=== PATIENT | male | born 1975 | race Caucasian/White ===

== ENCOUNTER 2018-01-24 09:35 | Emergency (ER) | payer SELFPAY ==
[~2018-01-24] VITALS: Ht 182.9 cm; Wt 113.4 kg
[~2018-01-24 09:35] MED LIST: ACHD5005 PO; CYCL10TA9 PO
--- NOTE | 2018-01-24 10:46 | ED Lower Extremity ---
General Chief Complaint: Lower Extremity Stated Complaint: SWOLLEN ANKLES Nursing Triage Note: ARRIVED VIA AMB TO ROOM 06. COMPLAINS OF BILAT LOWER LEG EDEMA THAT HAS BEEN GOING ON FOR A WHILE. STATES HE WENT TO [facility] 5 MONTHS AGO AND WAS TOLD HE HAD CELLULITIS. Nursing Sepsis Screen: No Definite Risk Source: patient Exam Limitations: no limitations History of Present Illness Date Seen by Provider: Jan 24, 2018 Time Seen by Provider: 10:42 Initial Comments To ER with c/o bilateral leg edema. Right leg swelling x6 months and was seen at [facility] at onset of this, told he had cellulitis. However, swelling persists and no fevers or redness. About 3 weeks ago, the left leg began swelling. No pain. No abdominal pain, no dyspnea. He does use compression stockings at home sometimes. Also, his dad has lasix that he occasionally takes but does not notice that it helps any. Onset: this evening Severity: moderate Allergies and Home Medications Allergies Coded Allergies: No Known Drug Allergies (Unverified , 11/26/12) Home Medications Hydrochlorothiazide 25 Mg Tablet, 25 MG PO DAILY Prescribed by: JE PABLO on 01/24/18 1151 Patient Home Medication List Home Medication List Reviewed: Yes Constitutional: see HPI EENTM: see HPI Respiratory: no symptoms reported Cardiovascular: no symptoms reported Genitourinary: no symptoms reported Musculoskeletal: no symptoms reported Skin: see HPI Psychiatric/Neurological: No Symptoms Reported Past Aimosbo-Bkpfmc-Jrovas Hx Patient Social History Alcohol Use: Denies Use Recreational Drug Use: No Smoking Status: Current Everyday Smoker Recent Foreign Travel: No Contact w/Someone Who Travel: No Recent Infectious Disease Expo: No Past Medical History Surgeries: Yes (VERICOSE VEIN IN TESTICLE) Respiratory: No Neurological: No Gastrointestinal: Yes (HEP C) Hepatitis Musculoskeletal: No Endocrine: No HEENT: No Cancer: No Psychosocial: No Integumentary: No Physical Exam Vital Signs Vital Signs - First Documented 01/24/18 01/24/18 10:02 11:58 Temp 98.0 Pulse 86 Resp 16 B/P (MAP) 138/83 (101) Pulse Ox 97 O2 Delivery Room Air Capillary Refill : Less Than 3 Seconds General Appearance: WD/WN, no apparent distress HEENT: PERRL/EOMI, normal ENT inspection Neck: non-tender, full range of motion Respiratory: no respiratory distress, no accessory muscle use Gastrointestinal: non tender, soft Hips: bilateral hip non-tender, bilateral hip normal inspection, bilateral hip normal range of motion Legs: bilateral leg non-tender, bilateral leg normal inspection, bilateral leg normal range of motion Knees: bilateral knee non-tender, bilateral knee normal inspection, bilateral knee normal range of motion Ankles: bilateral ankle swelling (bilateral but right > left. 2+ pitting edema. brownish discoloration to right lower leg. this swelling is confined primarily to the ankles and distal 1/3 of lower etremity. ) Progress/Results/Core Measures Lab Results Laboratory Tests Test 01/24/18 10:45 Range/Units White Blood Count 10.2 4.3-11.0 10^3/uL Red Blood Count 4.55 4.35-5.85 10^6/uL Hemoglobin 14.1 13.3-17.7 G/DL Hematocrit 41 40-54 % Mean Corpuscular Volume 91 80-99 FL Mean Corpuscular Hemoglobin 31 25-34 PG Mean Corpuscular Hemoglobin Concent 34 32-36 G/DL Red Cell Distribution Width 12.4 10.0-14.5 % Platelet Count 235 130-400 10^3/uL Mean Platelet Volume 9.2 7.4-10.4 FL Neutrophils (%) (Auto) 58 42-75 % Lymphocytes (%) (Auto) 30 12-44 % Monocytes (%) (Auto) 9 0-12 % Eosinophils (%) (Auto) 3 0-10 % Basophils (%) (Auto) 0 0-10 % Neutrophils # (Auto) 5.9 1.8-7.8 X 10^3 Lymphocytes # (Auto) 3.0 1.0-4.0 X 10^3 Monocytes # (Auto) 1.0 0.0-1.0 X 10^3 Eosinophils # (Auto) 0.3 0.0-0.3 10^3/uL Basophils # (Auto) 0.0 0.0-0.1 10^3/uL Sodium Level 141 135-145 MMOL/L Potassium Level 3.7 3.6-5.0 MMOL/L Chloride Level 107 98-107 MMOL/L Carbon Dioxide Level 23 21-32 MMOL/L Anion Gap 11 5-14 MMOL/L Blood Urea Nitrogen 13 7-18 MG/DL Creatinine 0.93 0.60-1.30 MG/DL Estimat Glomerular Filtration Rate > 60 BUN/Creatinine Ratio 14 Glucose Level 122 H 70-105 MG/DL Calcium Level 9.2 8.5-10.1 MG/DL B-Type Natriuretic Peptide < 10.0 <100.0 PG/ML My Orders Orders - JE PABLO APRN Cbc With Automated Diff (01/24/18 10:37) BNP (01/24/18 10:37) Basic Metabolic Panel (01/24/18 10:37) Saline Lock/Iv-Start (01/24/18 10:37) Us Venous Lower Ext [place] (01/24/18 10:46) Vital Signs/I&O 01/24/18 01/24/18 10:02 11:58 Temp 98.0 Pulse 86 80 Resp 16 16 B/P (MAP) 138/83 (101) 141/89 Pulse Ox 97 98 O2 Delivery Room Air Blood Pressure Mean: 101 Departure Impression Primary Impression: Pedal edema Disposition: 01 HOME, SELF-CARE Condition: Stable/Unchanged Departure-Patient Inst. Decision time for Depature: 11:49 Referrals: [facility] [place] (PCP/Family) Primary Care Physician Patient Instructions: Dependent Edema (DC) Add. Discharge Instructions: Continue to wear THEODORA hose and elevate the lower extremities as much as possible and take her diuretic as directed and follow up with your primary care within 1 week for recheck. All discharge instructions reviewed with patient and/or family. Voiced understanding. Scripts Hydrochlorothiazide (Hydrochlorothiazide) 25 Mg Tablet 25 MG PO DAILY for 15 Days, #15 TAB Prov: JE PABLO APRN 01/24/18 JE PABLO APRN Jan 24, 2018 10:46
[2018-01-24 10:54] LABS: BASOPHILS % (AUTO) 0 % (0-10); EOSINOPHILS # (AUTO) 0.3 10^3/uL (0.0-0.3); EOSINOPHILS % (AUTO) 3 % (0-10); HEMATOCRIT 41 % (40-54); HEMOGLOBIN 14.1 G/DL (13.3-17.7); LYMPHOCYTES % (AUTO) 30 % (12-44); MEAN CORPUSCULAR HEMOGLOBIN 31 PG (25-34); MEAN CORPUSCULAR HGB CONC 34 G/DL (32-36); MEAN CORPUSCULAR VOLUME 91 FL (80-99); MEAN PLATELET VOLUME 9.2 FL (7.4-10.4); MONOCYTES % (AUTO) 9 % (0-12); NEUTROPHILS # (AUTO) 5.9 X 10^3 (1.8-7.8); NEUTROPHILS % (AUTO) 58 % (42-75); PLATELET COUNT 235 10^3/uL (130-400); RED BLOOD COUNT 4.55 10^6/uL (4.35-5.85); RED CELL DISTRIBUTION WIDTH 12.4 % (10.0-14.5); WHITE BLOOD COUNT 10.2 10^3/uL (4.3-11.0)
[2018-01-24 11:17] LABS: BUN/CREATININE RATIO 14; CALCIUM 9.2 MG/DL (8.5-10.1); CARBON DIOXIDE 23 MMOL/L (21-32); CHLORIDE 107 MMOL/L (98-107); CREATININE SERUM 0.93 MG/DL (0.60-1.30); GFR ESTIMATED > 60; GLUCOSE 122 MG/DL (70-105); POTASSIUM 3.7 MMOL/L (3.6-5.0); SODIUM 141 MMOL/L (135-145)
[2018-01-24] MEDS ORDERED: HYDR25TA4 PO (11:51)
[2018-01-24 11:58] VITALS: BP 141/89
--- NOTE | 2018-01-24 11:58 | Diagnostic Imaging Report ---
INDICATION: Bilateral ankle swelling. FINDINGS: The femoropopliteal deep venous system bilaterally was widely patent and showed normal compressibility, normal flow and normal Doppler waveforms. No superficial thrombi are identified. No mass or fluid collection documented. IMPRESSION: Normal negative bilateral lower extremity venous Doppler and ultrasound exam. Dictated by: Dictated on workstation # [id number]
--- OUTSIDE RECORDS SUMMARY | 2018-01-24 13:36 | XMS REPORT ---
Author Author ZOILA PUGH Organization [employer] Address Unknown Phone Unavailable Care Team Providers Care Pile Trimmer Name Role Phone ZOILA PUGH CP Unavailable Allergies, Adverse Reactions, Alerts Substance Reaction Event Type N.K.D.A. Info Not Available Non Drug Allergy Problems Problem Type Condition Code Onset Dates Condition Status Assessment Cellulitis of right lower extremity L03.115 Active Medications Medication Code System Code Instructions Start Date End Date Status Dosage Clindamycin HCl [facility] [address]-04 300 MG Orally every 8 hrs Aug 14, 2016 Aug 21, 2016 1 capsule Tramadol HCl [facility] [address]-50 50 MG Orally every 6 hrs 1 tablet as needed Procedures Procedure Coding System Code Date Office Visit, Est Pt., Level 3 CPT-4 67994 Aug 14, 2016 Vital Signs Date/Time: Aug 14, 2016 Cardiac Monitoring Heart Rate 78 bpm Weight 228.0 lbs Height 72 in BMI 30.92 Index Blood Pressure Diastolic 72 mmHg Blood Pressure Systolic 114 mmHg Results No Known Results Summary Purpose [employer] Submission
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
== END 2018-01-24 11:58 | disposition home or self-care (01) ==
LOC: EDUNIT# 09:35 → ER 09:37
DX: R60.0 Localized edema (principal); B19.20 Unspecified viral hepatitis C without hepatic coma; F17.200 Nicotine dependence, unspecified, uncomplicated
CPT/HCPCS: 36415; 80048; 83880; 85025; 93970

== ENCOUNTER 2019-06-25 17:59 | Emergency (ER) | payer OTHER ==
[~2019-06-25] VITALS: Ht 182.8 cm; Wt 113.6 kg
[~2019-06-25 17:59] MED LIST changes: +HYDR25TA4 PO
--- NOTE | 2019-06-25 19:38 | Diagnostic Imaging Report ---
INDICATION: Right elbow pain. FINDINGS: Alignment of the elbow appears appropriate. There is a normal anterior humeral radiocapitellar line. There is no elevation of fat pad to suggest the presence of a joint effusion. No fractures evident. Soft tissues unremarkable without foreign body. IMPRESSION: Negative radiographs of the right elbow. Dictated by: Dictated on workstation # [id number]
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
[2019-06-25 20:27] VITALS: BP 109/78
== END 2019-06-25 20:27 | disposition home or self-care (01) ==
LOC: EDUNIT# 17:59 → ER 18:01
DX: S50.311A Abrasion of right elbow, initial encounter (principal); S80.11XA Contusion of right lower leg, initial encounter; B19.20 Unspecified viral hepatitis C without hepatic coma; F17.210 Nicotine dependence, cigarettes, uncomplicated; Z77.22 Contact with and (suspected) exposure to environmental tobacco smoke (acute) (chronic); W25.XXXA Contact with sharp glass, initial encounter
CPT/HCPCS: 73080

== ENCOUNTER 2022-03-11 00:38 | Emergency (ER) | payer SELFPAY ==
[~2022-03-11] VITALS: Ht 155 cm; Wt 127.0 kg
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
[2022-03-11 00:59] VITALS: BP 137/80
[2022-03-11] MEDS ORDERED: TETANUS,DIPTH,PERTUSS P/F (BOOSTRIX) 0.5 ML VIAL IM ONE (01:00)
[2022-03-11 01:27] LABS: BASOPHILS # (AUTO) 0.1 10^3/uL (0.0-0.1); BASOPHILS % (AUTO) 1 % (0-10); EOSINOPHILS # (AUTO) 0.3 10^3/uL (0.0-0.3); EOSINOPHILS % (AUTO) 2 % (0-10); HEMATOCRIT 44 % (40-54); HEMOGLOBIN 14.7 g/dL (13.3-17.7); LYMPHOCYTES # (AUTO) 3.3 10^3/uL (1.0-4.0); LYMPHOCYTES % (AUTO) 29 % (12-44); MEAN CORPUSCULAR HEMOGLOBIN 29 pg (25-34); MEAN CORPUSCULAR HGB CONC 33 g/dL (32-36); MEAN CORPUSCULAR VOLUME 89 fL (80-99); MEAN PLATELET VOLUME 9.5 fL (9.0-12.2); MONOCYTES # (AUTO) 0.9 10^3/uL (0.0-1.0); MONOCYTES % (AUTO) 8 % (0-12); NEUTROPHILS # (AUTO) 7.1 10^3/uL (1.8-7.8); NEUTROPHILS % (AUTO) 61 % (42-75); PLATELET COUNT 274 10^3/uL (130-400); WHITE BLOOD COUNT 11.7 10^3/uL (4.3-11.0)
[2022-03-11 01:41] LABS: ALBUMIN 3.8 GM/DL (3.2-4.5)
[2022-03-11 01:42] LABS: CHLORIDE 105 MMOL/L (98-107); POTASSIUM 3.9 MMOL/L (3.6-5.0); SODIUM 140 MMOL/L (135-145)
[2022-03-11 01:43] LABS: CALCIUM 9.4 MG/DL (8.5-10.1); INR 0.8 (0.8-1.4); PROTHROMBIN TIME PATIENT 11.8 SEC (12.2-14.7)
[2022-03-11 01:44] LABS: GLUCOSE 108 MG/DL (70-105); TOTAL PROTEIN 7.1 GM/DL (6.4-8.2)
[2022-03-11 01:45] LABS: CARBON DIOXIDE 21 MMOL/L (21-32)
[2022-03-11 01:46] LABS: BILIRUBIN,TOTAL 0.2 MG/DL (0.1-1.0)
[2022-03-11 01:47] LABS: ALKALINE PHOSPHATASE 83 U/L (40-136)
[2022-03-11 01:48] LABS: CREATININE SERUM 0.88 MG/DL (0.60-1.30); GFR ESTIMATED 106
[2022-03-11 01:49] LABS: BUN/CREATININE RATIO 9
[2022-03-11] MEDS ORDERED: RX-MUPIROCIN (BACTROBAN) 2% OINT 22 GM TUBE TOP STA (01:50)
[2022-03-11 01:51] LABS: ALANINE AMINOTRANSFERASE 21 U/L (0-55)
[2022-03-11] MEDS ORDERED: CEPH500T PO (02:17)
[2022-03-11] MEDS ORDERED: RX-CEPHALEXIN (KEFLEX) 250 MG CAP PPK#4 PO STA (02:17)
[2022-03-11] MEDS ORDERED: RX-CEPHALEXIN (KEFLEX) 250 MG CAP PPK#4 PO ONE (02:20)
--- NOTE | 2022-03-11 07:01 | Diagnostic Imaging Report ---
INDICATION: Left lower leg pain EXAMINATION: Tibia and fibula from 03/11/2022 FINDINGS: 4 views of the tibia and fibula. There is diffuse edema noted within the soft tissues. No fractures or dislocations appreciated. Joint spaces maintained. IMPRESSION: 1. Diffuse edema within the soft tissues. No acute osseous abnormality. Dictated by: Dictated on workstation # [id number]
== END 2022-03-11 02:40 | disposition home or self-care (01) ==
LOC: EDUNIT# 00:38 → ER 00:42
DX: S80.12XA Contusion of left lower leg, initial encounter (principal); I87.2 Venous insufficiency (chronic) (peripheral); I83.018 Varicose veins of right lower extremity with ulcer other part of lower leg; I83.028 Varicose veins of left lower extremity with ulcer other part of lower leg; R60.0 Localized edema; E66.01 Morbid (severe) obesity due to excess calories; F17.210 Nicotine dependence, cigarettes, uncomplicated; Z68.33 Body mass index [BMI] 33.0-33.9, adult; Z23 Encounter for immunization; Z98.890 Other specified postprocedural states; Z20.822 Contact with and (suspected) exposure to COVID-19; W20.8XXA Other cause of strike by thrown, projected or falling object, initial encounter
CPT/HCPCS: 73590; 80053; 83880; 85025; 85610; 85730; 87636; 99283; G0480; 36415; 80320; 90715

== ENCOUNTER 2022-05-17 01:03 | Emergency (ER) | payer SELFPAY ==
[~2022-05-17 01:03] MED LIST changes: +CEPH500T PO
[2022-05-17 01:22] VITALS: BP 175/92
[2022-05-17] MEDS ORDERED: morphine INJ 10 MG/ML 1ML (SYR OR VIAL) IVP STA (01:27)
[2022-05-17 01:32] LABS: BASOPHILS # (AUTO) 0.1 10^3/uL (0.0-0.1); BASOPHILS % (AUTO) 1 % (0-10); EOSINOPHILS # (AUTO) 0.3 10^3/uL (0.0-0.3); EOSINOPHILS % (AUTO) 2 % (0-10); HEMATOCRIT 44 % (40-54); HEMOGLOBIN 14.5 g/dL (13.3-17.7); LYMPHOCYTES # (AUTO) 3.5 10^3/uL (1.0-4.0); LYMPHOCYTES % (AUTO) 28 % (12-44); MEAN CORPUSCULAR HEMOGLOBIN 30 pg (25-34); MEAN CORPUSCULAR HGB CONC 33 g/dL (32-36); MEAN CORPUSCULAR VOLUME 89 fL (80-99); MEAN PLATELET VOLUME 9.4 fL (9.0-12.2); MONOCYTES % (AUTO) 8 % (0-12); NEUTROPHILS # (AUTO) 7.7 10^3/uL (1.8-7.8); NEUTROPHILS % (AUTO) 61 % (42-75); PLATELET COUNT 282 10^3/uL (130-400); WHITE BLOOD COUNT 12.7 10^3/uL (4.3-11.0)
[2022-05-17 01:35] LABS: ALBUMIN 3.9 GM/DL (3.2-4.5)
[2022-05-17 01:36] LABS: CALCIUM 9.1 MG/DL (8.5-10.1)
[2022-05-17 01:40] LABS: BILIRUBIN,TOTAL 0.3 MG/DL (0.1-1.0)
[2022-05-17 01:41] LABS: CREATININE SERUM 1.11 MG/DL (0.60-1.30)
[2022-05-17] MEDS ORDERED: cefTRIAXone 1 GM PRE-MIX 50 ML IV STA (02:54)
--- NOTE | 2022-05-17 03:00 | ED General ---
General Chief Complaint: Lower Extremity Stated Complaint: BOTH LEGS SWELLING Nursing Triage Note: pt presents with c/o lower leg swelling and wounds. pt has what appears to be diabetic ulcers that are weeping on both lower legs. skin is shiny and tight with no hair growth in what appears to be a venous insufeciancy to the lower extremities. pt denies being a known diabetic. pt denies fever, denies n/v/d. does report pain in bilateral lower extremities. reports wounds have been there for around 2 weeks. Source of Information: Patient Exam Limitations: No Limitations History of Present Illness Date Seen by Provider: May 17, 2022 Allergies and Home Medications Allergies Coded Allergies: No Known Drug Allergies (Unverified , 11/26/12) Patient Home Medication List Cephalexin (Cephalexin) 500 Mg Tablet, 500 MG PO QID Prescribed by: VIRI BRENNER on 03/11/22 0217 Hydrochlorothiazide (Hydrochlorothiazide) 25 Mg Tablet, 25 MG PO DAILY Prescribed by: JE PABLO on 01/24/18 1151 Past Ptairtd-Xexvwx-Xocihu Hx Patient Social History Tobacco Use?: Yes Smoking Status: Current Everyday Smoker Substance use?: No Alcohol Use?: No Pt feels they are or have been: No Immunizations Up To Date Influenza Vaccine Up-to-Date: No; Not Current First/Initial COVID19 Vaccinat: YES Second COVID19 Vaccination Mark: YES Past Medical History Surgeries: Yes (VERICOSE VEIN IN TESTICLE) Testicular Respiratory: No Cardiac: No (SCHAFFER) Neurological: No Reproductive Disorders: Yes (SURGERY FOR VARICOCOELE) Genitourinary: Yes (VARICOCOELE SURGERY) Gastrointestinal: Yes (HEPATITIS C-NO TREATMENT) Hepatitis Musculoskeletal: No Endocrine: Yes (MORBID OBESITY) HEENT: No Cancer: No Psychosocial: No Integumentary: No Blood Disorders: No Physical Exam Vital Signs Vital Signs - First Documented 05/17/22 01:22 Temp 36.0 Pulse 98 Resp 18 B/P (MAP) 175/92 (119) Pulse Ox 98 Capillary Refill : Height, Weight, BMI Height: 6'" Weight: 250lbs. oz. [id number]; 52.00 BMI Method:Stated Progress/Results/Core Measures Suspected Sepsis SIRS Temperature: Pulse: 98 Respiratory Rate: 18 Laboratory Tests 05/17/22 01:21: White Blood Count 12.7H Blood Pressure 175 /92 Mean: 119 Laboratory Tests 05/17/22 01:21: Creatinine 1.11, Platelet Count 282, Total Bilirubin 0.3 Results/Orders Lab Results Laboratory Tests Test 05/17/22 01:21 Range/Units White Blood Count 12.7 H 4.3-11.0 10^3/uL Red Blood Count 4.90 4.30-5.52 10^6/uL Hemoglobin 14.5 13.3-17.7 g/dL Hematocrit 44 40-54 % Mean Corpuscular Volume 89 80-99 fL Mean Corpuscular Hemoglobin 30 25-34 pg Mean Corpuscular Hemoglobin Concent 33 32-36 g/dL Red Cell Distribution Width 12.9 10.0-14.5 % Platelet Count 282 130-400 10^3/uL Mean Platelet Volume 9.4 9.0-12.2 fL Immature Granulocyte % (Auto) 1 % Neutrophils (%) (Auto) 61 42-75 % Lymphocytes (%) (Auto) 28 12-44 % Monocytes (%) (Auto) 8 0-12 % Eosinophils (%) (Auto) 2 0-10 % Basophils (%) (Auto) 1 0-10 % Neutrophils # (Auto) 7.7 1.8-7.8 10^3/uL Lymphocytes # (Auto) 3.5 1.0-4.0 10^3/uL Monocytes # (Auto) 1.0 0.0-1.0 10^3/uL Eosinophils # (Auto) 0.3 0.0-0.3 10^3/uL Basophils # (Auto) 0.1 0.0-0.1 10^3/uL Immature Granulocyte # (Auto) 0.1 0.0-0.1 10^3/uL Sodium Level 137 135-145 MMOL/L Potassium Level 4.0 3.6-5.0 MMOL/L Chloride Level 103 98-107 MMOL/L Carbon Dioxide Level 24 21-32 MMOL/L Anion Gap 10 5-14 MMOL/L Blood Urea Nitrogen 14 7-18 MG/DL Creatinine 1.11 0.60-1.30 MG/DL Estimat Glomerular Filtration Rate 82 BUN/Creatinine Ratio 13 Glucose Level 124 H 70-105 MG/DL Calcium Level 9.1 8.5-10.1 MG/DL Corrected Calcium 9.2 8.5-10.1 MG/DL Total Bilirubin 0.3 0.1-1.0 MG/DL Aspartate Amino Transf (AST/SGOT) 16 5-34 U/L Alanine Aminotransferase (ALT/SGPT) 24 0-55 U/L Alkaline Phosphatase 79 40-136 U/L C-Reactive Protein High Sensitivity 0.58 H 0.00-0.50 MG/DL B-Type Natriuretic Peptide < 10.0 <100.0 PG/ML Total Protein 7.0 6.4-8.2 GM/DL Albumin 3.9 3.2-4.5 GM/DL My Orders Orders - CAMILLE TORRES MD [facility] (05/17/22:27) Cbc With Automated Diff (05/17/22:) Comprehensive Metabolic Panel (05/17/22:) Hs C Reactive Protein (05/17/22:) Ed Iv/Invasive Line Start (05/17/22:27) Morphine Injection (Morphine Injection (05/17/22:27) Ceftriaxone 1 Gram Iv (05/17/22 02:54) Vital Signs/I&O 05/17/22: Temp 36.0 Pulse 98 Resp 18 B/P (MAP) 175/92 (119) Pulse Ox 98 Capillary Refill : Blood Pressure Mean: 119 Departure Impression Primary Impression: Lower extremity edema Additional Impression: Lower extremity cellulitis Qualified Codes: L03.119 - Cellulitis of unspecified part of limb Disposition: 01 HOME, SELF-CARE Condition: Stable Departure-Patient Inst. Decision time for Depature: 02:55 Referrals: [facility] [place] (PCP/Family) Primary Care Physician Patient Instructions: Cellulitis (Skin Infection), Adult ED, Swelling Add. Discharge Instructions: Follow-up with your primary care provider as soon as possible. Please call today to make an appointment. Follow-up with wound care as soon as possible. If you do not hear from them within 24 hours, please call at [phone]. Complete your antibiotic as prescribed. As long as you have open sores or weeping from your legs, cover them with sterile dressings and change often. You may apply antibiotic ointment to the weeping wounds to keep them from sticking to the dressing. Elevate your feet to the level of your heart or higher is much as possible. Work toward weight loss which will help with the swelling. Use the Lasix (furosemide) water pill each morning. Always use potassium with the Lasix. Avoid salt and salty foods as this may worsen swelling. For pain you may take Tylenol (acetaminophen) up to 1000 mg every 6 hours as needed and/or ibuprofen up to 600 mg every 6 hours as needed. For pain not controlled by deqh-wra-qddrodk medications, take Ultram (tramadol) as prescribed. If you have not already, please complete the financial assistance paperwork for the hospital soon as possible. All discharge instructions reviewed with patient and/or family. Voiced understanding. Scripts Potassium Chloride (Potassium Chloride) 20 Meq Tablet.er 20 MEQ PO DAILY, #5 TAB Prov: CAMILLE TORRES MD 05/17/22 Furosemide (Furosemide) 20 Mg Tablet 20 MG PO DAILY, #5 TAB Prov: CAMILLE TORRES MD 05/17/22 Tramadol HCl (Ultram) 50 Mg Tablet 50 MG PO Q6H PRN for PAIN-BREAKTHROUGH, #10 TAB Prov: CAMILLE TORRES MD 05/17/22 Cephalexin (Cephalexin) 500 Mg Tablet 500 MG PO QID, #40 TAB Prov: CAMILLE TORRES MD 05/17/22 CAMILLE TORRES MD May 17, 2022 03:00
[2022-05-17] MEDS ORDERED: TRAM-42 PO (03:01)
[2022-05-17] MEDS ORDERED: CEPH500T PO (03:01)
[2022-05-17] MEDS ORDERED: FURO20TA4 PO (03:03)
[2022-05-17] MEDS ORDERED: POTA-51 PO (03:03)
== END 2022-05-17 03:33 | disposition home or self-care (01) ==
LOC: EDUNIT# 01:03 → ER 01:07
DX: L03.115 Cellulitis of right lower limb (principal); L03.116 Cellulitis of left lower limb; F17.200 Nicotine dependence, unspecified, uncomplicated
CPT/HCPCS: 36415; 80053; 83880; 85025; 86141; 87040

== ENCOUNTER 2023-02-20 16:06 | Emergency (ER) | payer SELFPAY ==
[~2023-02-20] VITALS: Ht 182 cm; Wt 127.0 kg
[~2023-02-20 16:06] MED LIST changes: +FURO20TA4 PO; +POTA-51 PO; +TRAM-42 PO
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
[2023-02-20 17:34] VITALS: BP 145/82
== END 2023-02-20 17:34 | disposition home or self-care (01) ==
LOC: EDUNIT# 16:06 → ER 16:08
DX: S81.812A Laceration without foreign body, left lower leg, initial encounter (principal); F17.210 Nicotine dependence, cigarettes, uncomplicated; E66.01 Morbid (severe) obesity due to excess calories; Z68.38 Body mass index [BMI] 38.0-38.9, adult; W26.8XXA Contact with other sharp object(s), not elsewhere classified, initial encounter
CPT/HCPCS: 99281